=== PATIENT | female | born 1995 | race Caucasian/White ===

== ENCOUNTER 2019-09-29 08:30 | Inpatient (IN) | payer OTHER ==
[2019-09-29] MEDS ORDERED: AMPICILLIN - 2 GM in SODIUM CHLORIDE 100 ML IVPB ONE (10:44)
[2019-09-29] MEDS ORDERED: BUTORPHANOL TARTRATE 1 MG/ML VIAL IVPB PRN (10:45)
[2019-09-29] MEDS ORDERED: AMPICILLIN SODIUM 2 GM VIAL ONE (10:59)
[2019-09-29] MEDS ORDERED: SODIUM CHLORIDE 100 ML IVPB ONE ×2 (10:59→14:50)
[2019-09-29] MEDS: ELECTROLYTE-148 SOLN 1,000 ML IV SCH ×2 (11:15→19:30)
[2019-09-29 11:46] VITALS: BMI 24.7
[2019-09-29] MEDS: OXYTOCIN 30 UNITS in 0.9% NS 30 UNIT/500 ML INFUS.BAG IVPB SCH (12:00)
[2019-09-29 12:25] LABS: BASO % 0.7 % (0-2.0); EOS % 0.2 % (0-4.5); HEMATOCRIT 37.4 % (32.4-45.2); HEMOGLOBIN 12.6 GM/dL (10.7-15.3); LYMPH % 18.1 % (8-40); MCH 32.8 pg (25.7-33.7); MCHC 33.6 g/dl (32.0-36.0); MEAN CELL VOLUME 97.5 fl (80-96); MEAN PLT VOLUME 9.5 fl (7.5-11.1); PLATELET COUNT 213 K/MM3 (134-434); RBC 3.84 M/mm3 (3.60-5.2); RDW 13.4 % (11.6-15.6); WHITE BLOOD COUNT 8.2 K/mm3 (4.0-10.0)
[2019-09-29 12:38] LABS: INR 0.94 (0.83-1.09); PROTHROMBIN TIME (PATIENT) 11.1 SEC (9.7-13.0)
[2019-09-29 12:40] LABS: ACTIVATED PTT 29.1 SECONDS (25.2-36.5)
[2019-09-29 12:56] LABS: BLOOD UREA NITROGEN 4.6 mg/dL (7-18); CREATININE 0.4 mg/dL (0.55-1.3); POTASSIUM 3.8 mmol/L (3.5-5.1)
[2019-09-29 12:57] LABS: CALCIUM 8.3 mg/dL (8.5-10.1)
[2019-09-29] MEDS ORDERED: AMPICILLIN - 1 GM in SODIUM CHLORIDE 100 ML IVPB SCH (14:46)
[2019-09-29] MEDS ORDERED: AMPICILLIN SODIUM 1 GM VIAL ONE ×3 (14:50→23:14)
[2019-09-29] MEDS: AMPICILLIN - 1 GM in SODIUM CHLORIDE 100 ML IVPB SCH ×3 (15:30→23:30)
[2019-09-29] MEDS ORDERED: BUTORPHANOL TARTRATE 1 MG/ML VIAL ONE ×2 (17:37)
[2019-09-29] MEDS ORDERED: PCA PUMP NR ONE (20:00)
[2019-09-29] MEDS ORDERED: FENTANYL/BUPIVACAINE/NS/PF - PCEA - 50 ML DISP.SYRIN EP ONE ×2 (20:00→23:56)
[2019-09-29] MEDS ORDERED: NALOXONE HCL 0.4 MG/ML VIAL IVPUSH PRN (20:09)
[2019-09-29] MEDS: FENTANYL/BUPIVACAINE/NS/PF - PCEA - 50 ML DISP.SYRIN EP SCH (20:20)
[2019-09-30] MEDS: AMPICILLIN - 1 GM in SODIUM CHLORIDE 100 ML IVPB SCH ×3 (03:30→11:35)
[2019-09-30] MEDS ORDERED: AMPICILLIN SODIUM 1 GM VIAL ONE ×4 (03:41→14:52)
[2019-09-30] MEDS ORDERED: BUPIVACAINE HCL/PF 0.5% (5 MG/ML) 30 ML VIAL IJ ONE (04:52)
[2019-09-30] MEDS ORDERED: FENTANYL/BUPIVACAINE/NS/PF - PCEA - 50 ML DISP.SYRIN EP ONE ×3 (05:02→14:22)
[2019-09-30] MEDS ORDERED: SODIUM CHLORIDE 100 ML IVPB ONE ×3 (07:02→14:52)
[2019-09-30] MEDS ORDERED: PCA PUMP NR ONE ×2 (09:38→17:13)
[2019-09-30] MEDS: FENTANYL/BUPIVACAINE/NS/PF - PCEA - 50 ML DISP.SYRIN EP SCH ×2 (10:06→14:30)
[2019-09-30] MEDS: ELECTROLYTE-148 SOLN 1,000 ML IV SCH ×4 (11:35→22:38)
[2019-09-30] MEDS ORDERED: LIDO 2%/EPI 1:200000 PRESRVFRE (20 ML SDVIAL) ONE (14:04)
[2019-09-30] MEDS ORDERED: ACETAMINOPHEN 1000 MG/100 ML VIAL (NON FORMULARY) IVPB ONE (15:15)
[2019-09-30] MEDS ORDERED: ACETAMINOPHEN INJECTION 100 ML IVPB ONE (15:19)
[2019-09-30] MEDS ORDERED: AMPICILLIN - 1 GM in SODIUM CHLORIDE 100 ML IVPB SCH ×2 (15:30→18:51)
[2019-09-30] MEDS ORDERED: OXYTOCIN 20 UNITS in 0.9% NS 20 UNIT/1,000 ML INFUS.BAG IV ONE ×2 (17:21→18:32)
[2019-09-30] MEDS ORDERED: CITRIC ACID/SODIUM CITRATE 30 ML UNIT-DOSE CUP PO ONE (18:27)
[2019-09-30] MEDS ORDERED: SODIUM BICARBONATE 8.4% 50 MEQ/50 ML VIAL ONE (18:32)
[2019-09-30] MEDS ORDERED: ePHEDrine SULFATE 50 MG/1 ML AMPULE ONE (18:37)
[2019-09-30] MEDS ORDERED: ceFAZolin SODIUM 1 GM VIAL ONE (19:03)
[2019-09-30] MEDS ORDERED: MIDAZOLAM HCL 2 MG/2 ML SINGLE DOSE VIAL ONE (19:12)
[2019-09-30] MEDS ORDERED: PHENYLEPHRINE HCL 10 MG/1 ML SINGLE DOSE VIAL ONE (19:17)
[2019-09-30] MEDS ORDERED: METHYLERGONOVINE MALEATE 0.2 MG/1 ML AMP IM PRN (19:42)
[2019-09-30] MEDS ORDERED: oxyCODONE HCL 5 MG TABLET PO PRN (19:42)
[2019-09-30] MEDS ORDERED: IBUPROFEN 800 MG/8 ML IJ IVPB PRN (19:42)
[2019-09-30] MEDS ORDERED: ONDANSETRON 4 MG/2 ML VIAL IVPUSH PRN (19:59)
[2019-09-30] MEDS: OXYTOCIN 30 UNITS in 0.9% NS 30 UNIT/500 ML INFUS.BAG IVPB SCH (22:40)
[2019-10-01] MEDS: OXYTOCIN 20 UNITS in 0.9% NS 20 UNIT/1,000 ML INFUS.BAG IV SCH (04:26)
[2019-10-01 06:36] LABS: BASO % 0.2 % (0-2.0); EOS % 0.2 % (0-4.5); HEMATOCRIT 33.8 % (32.4-45.2); HEMOGLOBIN 11.3 GM/dL (10.7-15.3); LYMPH % 12.1 % (8-40); MCH 32.5 pg (25.7-33.7); MCHC 33.3 g/dl (32.0-36.0); MEAN CELL VOLUME 97.7 fl (80-96); MEAN PLT VOLUME 9.4 fl (7.5-11.1); MONO % 8.3 % (3.8-10.2); NEUT % 79.2 % (42.8-82.8); PLATELET COUNT 188 K/MM3 (134-434); RBC 3.46 M/mm3 (3.60-5.2); RDW 13.7 % (11.6-15.6); WHITE BLOOD COUNT 17.6 K/mm3 (4.0-10.0)
[2019-10-01] MEDS: FERROUS SO4 325 MG TABLET (FP) PO SCH ×2 (08:30→17:39)
[2019-10-01] MEDS: PRENATAL VITAMINS W/ FOLIC ACID TABLET (FP) PO SCH (09:43)
[2019-10-01] MEDS: ACETAMINOPHEN 325 MG TABLET (FP) PO PRN ×2 (10:43→21:38)
[2019-10-01] MEDS: IBUPROFEN 600 MG TABLET (FP) PO PRN ×2 (10:44→21:38)
[2019-10-01] MEDS ORDERED: BISACODYL 10 MG SUPP.RECT RC PRN (19:42)
[2019-10-01] MEDS: SIMETHICONE 80 MG TAB.CHEW (FP) PO PRN (21:38)
[2019-10-02] MEDS: FERROUS SO4 325 MG TABLET (FP) PO SCH ×2 (09:00→17:50)
[2019-10-02] MEDS: PRENATAL VITAMINS W/ FOLIC ACID TABLET (FP) PO SCH (10:00)
[2019-10-02] MEDS: ACETAMINOPHEN 325 MG TABLET (FP) PO PRN ×2 (11:29→23:37)
[2019-10-02] MEDS: SIMETHICONE 80 MG TAB.CHEW (FP) PO PRN ×2 (11:29→23:37)
[2019-10-02] MEDS: IBUPROFEN 600 MG TABLET (FP) PO PRN ×2 (11:29→23:36)
[2019-10-02] MEDS: OXYTOCIN 20 UNITS in 0.9% NS 20 UNIT/1,000 ML INFUS.BAG IV SCH (23:36)
[2019-10-03] MEDS: SIMETHICONE 80 MG TAB.CHEW (FP) PO PRN (08:14)
[2019-10-03] MEDS: FERROUS SO4 325 MG TABLET (FP) PO SCH (08:15)
[2019-10-03] MEDS: IBUPROFEN 600 MG TABLET (FP) PO PRN (08:15)
[2019-10-03] MEDS: ACETAMINOPHEN 325 MG TABLET (FP) PO PRN (08:15)
[2019-10-03 09:08] LABS: BASO % 0.1 % (0-2.0); EOS % 1.8 % (0-4.5); HEMATOCRIT 30.4 % (32.4-45.2); HEMOGLOBIN 10.4 GM/dL (10.7-15.3); LYMPH % 15.5 % (8-40); MCHC 34.3 g/dl (32.0-36.0); MEAN CELL VOLUME 96.2 fl (80-96); MEAN PLT VOLUME 9.2 fl (7.5-11.1); MONO % 5.2 % (3.8-10.2); NEUT % 77.4 % (42.8-82.8); PLATELET COUNT 224 K/MM3 (134-434); RBC 3.16 M/mm3 (3.60-5.2); WHITE BLOOD COUNT 9.6 K/mm3 (4.0-10.0)
[2019-10-03 10:02] VITALS: BP 113/57; PULSE 74; TEMP 98.2
[2019-10-03] MEDS: PRENATAL VITAMINS W/ FOLIC ACID TABLET (FP) PO SCH (11:00)
== END 2019-10-03 13:35 | disposition home or self-care (01) | DRG 540 ==
LOC: JLDR 08:30 → J3W 09-30 21:39
PROVIDERS: ADMIT Obstetrics & Gynecology; ATTEND Obstetrics & Gynecology
PROC: 10907ZC Drainage of Amniotic Fluid, Therapeutic from Products of Conception, Via Natural or Artificial Opening (ICD-10-PCS; principal; 2019-09-30)
PROC: 10D00Z1 Extraction of Products of Conception, Low, Open Approach (ICD-10-PCS; 2019-09-30)
DX: O32.4XX0 Maternal care for high head at term, not applicable or unspecified (principal); O99.824 Streptococcus B carrier state complicating childbirth; Z3A.39 39 weeks gestation of pregnancy; Z37.0 Single live birth
CPT/HCPCS: 36415; 80048; 85025; 85610; 85730; 86850; 86900; 86901; 88307-TC; J0131; U0003